=== PATIENT | female | born 1995 | race Caucasian/White ===

== ENCOUNTER 2017-03-08 01:25 | Emergency (ER) | payer OTHER ==
[2017-03-08 01:33] VITALS: TEMP 98.6
--- NOTE | 2017-03-08 01:37 | EDPHY ---
H & P Stated Complaint: calf pain/cramping since yesterday-knee sx x1week ago HPI/ROS: HPI CHIEF COMPLAINT: Calf pain HISTORY OF PRESENT ILLNESS: This patient very pleasant 21-year-old female, significant past medical history for anxiety and depression, she presents emergency room with left calf pain and muscle spasms over the past 12 hours. She just recently drove from [place] to [place]. 7 days ago she had left knee surgery. She decided come the emergency room as she is having worsening calf pain and spasms concerning for DVT. She denies any chest pain or shortness of breath. Denies fever. Denies significant swelling. She does state that she was in 2 days of a 10 hour car ride both days she did try to ambulate as much as possible. Past Medical History: No significant medical history except for anxiety and depression Past Surgical History: Left knee surgery. 7 days ago. Social History: Denies daily use drugs alcohol tobacco products. Family History: Noncontributory ROS REVIEW OF SYSTEMS: A comprehensive 10 point review of systems is otherwise negative aside from elements mentioned in the history of present illness. Exam Constitutional appears well nontoxic, slightly anxious, tearful, triage nursing summary reviewed, vital signs reviewed, awake/alert. Eyes normal conjunctivae and sclera, EOMI, PERRLA. HENT normal inspection, atraumatic, moist mucus membranes, no epistaxis, neck supple/ no meningismus, no raccoon eyes. Respiratory clear to auscultation bilaterally, normal breath sounds, no respiratory distress, no wheezing. Cardiovascular rate normal, regular rhythm, no murmur, no edema, distal pulses normal. Gastrointestinal soft, non-tender, no rebound, no guarding, normal bowel sounds, no distension, no pulsatile mass. Genitourinary no CVA tenderness. Musculoskeletal left lower extremity: Good cap refill, warm extremity, good distal pulse, no significant leg swelling on exam, no rash, no erythema, no warmth, mild tenderness palpation over the posterior calf and popliteal space but no fullness or significant swelling, no midline vertebral tenderness, full range of motion, no calf swelling, no tenderness of extremities, no meningismus , good pulses, neurovascularly intact. Skin pink, warm, & dry, no rash, skin atraumatic. Neurologic awake, alert and oriented x 3, AAOx3, moves all 4 extremities equally, motor intact, sensory intact, CN II-XII intact, normal cerebellar, normal vision, normal speech. Psychiatric normal mood/affect. Heme/Lymph/Immune no lymphadenopathy. Differential Diagnosis: Includes but is not limited to in a particular order muscle spasm, leg cramps, DVT Medical Decision Making:Plan for this patient ultrasound left lower extremity rule out DVT. Re-evaluation: Ultrasound of the left lower extremity The results of the study are negative for DVT. I discussed the results of this study with the radiologist Dr. Romeo [id number]: Updated patient about ultrasound findings. No DVT. Recommend ice pack to her knee stretching her legs. Return emergency room if there is worsening pain, swelling or any questions or concerns she understands.. Source: Patient - Personal History LMP (Females 10-55): 22-28 Days Ago Current Tetanus/Diphtheria Vaccine: Yes Current Tetanus Diphtheria and Acellular Pertussis (TDAP): Yes Tetanus Vaccine Date: 2011 - Medical/Surgical History Hx Asthma: Yes Hx Chronic Respiratory Disease: No Hx Diabetes: No Hx Cardiac Disease: No Hx Renal Disease: No Hx Cirrhosis: No Hx Alcoholism: No Hx HIV/AIDS: No Hx Splenectomy or Spleen Trauma: No Other PMH: ANOREXIA, ANXIETY, ADD, REACTIVE AIRWAY DX, DEPRESSION, KNEE SX - Social History Smoking Status: Never smoked Constitutional: Initial Vital Signs Temperature (C) 37.0 C 03/08/17 01:27 Heart Rate 114 H 03/08/17 01:27 Respiratory Rate 18 03/08/17 01:27 Blood Pressure 126/85 H 03/08/17 01:27 O2 Sat (%) 98 03/08/17 01:27 O2 Delivery Mode Room Air Allergies/Adverse Reactions: No Known Allergies Allergy (Verified 05/26/16 17:09) Home Medications: Medication Instructions Recorded Albuterol [Proventil] 17 gm IH 03/26/16 Levomefolate/Algal Oil 03/26/16 [Deplin-Algal Oil 7.5 mg Cap] Methylphenidate HCl [Concerta] 03/26/16 Zaleplon [ZALEPLON] 03/26/16 buPROPion [Wellbutrin 75mg (*)] 03/26/16 ASPIRIN 03/08/17 Oxycodone HCl 03/08/17 Departure - Departure Disposition: Home, Routine, Self-Care Clinical Impression: Calf pain Qualifiers: Laterality: left Qualified Code(s): M79.662 - Pain in left lower leg Condition: Good Instructions: Leg Cramps (ED) Referrals: OUT OF,STATE [Other] - As per Instructions
[2017-03-08 03:12] VITALS: BP 112/64; PULSE 64; RESP 16; O2SAT 97
== END 2017-03-08 03:10 | disposition home or self-care (01) ==
DX: M79.662 Pain in left lower leg (principal); J45.909 Unspecified asthma, uncomplicated; Z79.82 Long term (current) use of aspirin

== ENCOUNTER 2017-03-29 14:56 | Emergency (ER) | payer OTHER ==
[2017-03-29 15:04] VITALS: RESP 16; TEMP 97.7
--- NOTE | 2017-03-29 16:19 | EDPHY ---
H & P Stated Complaint: vomit x 1 mo, weight loss, sent from ?[facility] Time Seen by Provider: 03/29/17 16:04 HPI/ROS: CHIEF COMPLAINT: "I am here to have my blood recheck" HISTORY OF PRESENT ILLNESS: 21-year-old female arrives via private vehicle. She has been experiencing nausea, vomiting, esophageal reflux for the past 1 month after knee surgery. She has been seen by GI of the the [facility] , was started on proton pump inhibitor, was told that this may be related to somatization and in addition to further GI workup was recommended she follow up with a therapist in the [facility] which she has upcoming appointments for. She wanted to insure that she was not dehydrated, went to [facility] and was referred to the ER for blood work as they are unable to do that there today, Friday. She has no complaints of pain or discomfort. She is concerned she is dehydrated would like IV fluids. She denies: Abdominal pain, back pain, fever, chills, urinary abnormality, myalgias , syncope, near syncope. REVIEW OF SYSTEMS: A ten point review of systems was performed and is negative with the exception of the items mentioned in the HPI PAST MEDICAL & SURGICAL HISTORY: 1 month of esophageal reflux SOCIAL HISTORY:nonsmoker student PHYSICAL EXAM (Prior to examination, patient consented to physical exam, hands were washed and my usual and customary physical exam procedures followed) 1) GENERAL: Well-developed, well-nourished, alert and oriented. Appears to be in no acute distress. 2) HEAD: Normocephalic, atraumatic 3) HEENT: Pupils equal, round, reactive to light bilaterally. Sclera anicteric. Nasopharynx, oropharynx, clear, no lesions. dry mucous membranes Ears bilaterally with normal tympanic membranes. 4) NECK: Full range of motion, no meningeal signs. 5) LUNGS: Clear auscultation bilaterally, no wheezes, no rhonchi, no retractions. 6) HEART: Regular rate and rhythm, no murmur, no heave, no gallop. 7) ABDOMEN: No guarding, no rebound, no focal tenderness, negative McBurney's, negative Espinosa's, negative Rovsing's, negative peritoneal sign, I am unable to elicit any abdominal pain on exam 8) MUSCULOSKELETAL: Moving all extremities, no focal areas of tenderness, no obvious trauma. No peripheral edema or discoloration. 9) BACK: No CVA tenderness, no midline vertebral tenderness, no fluctuance, no step-off, no obvious trauma, no visual or palpable abnormality. 10) SKIN: No rash, no petechiae. 11) Psychiatric: Patient is oriented X 3, there is no agitation. DIFFERENTIAL DIAGNOSIS: My differential diagnosis includes, but is not limited to, acute appendicitis, acute cholecystitis, bowel obstruction, acute pancreatitis, ovarian torsion, ectopic , gastritis . The patient understands that this diagnosis is provisional and can never be 100% accurate. This is a partial list of diagnoses considered. These considerations are based on history, physical exam, past history and reassessment. - Personal History LMP (Females 10-55): 8-14 Days Ago Current Tetanus/Diphtheria Vaccine: Unsure Current Tetanus Diphtheria and Acellular Pertussis (TDAP): Unsure Tetanus Vaccine Date: 2011 - Medical/Surgical History Hx Asthma: Yes Hx Chronic Respiratory Disease: No Hx Diabetes: No Hx Cardiac Disease: No Hx Renal Disease: No Hx Cirrhosis: No Hx Alcoholism: No Hx HIV/AIDS: No Hx Splenectomy or Spleen Trauma: No Other PMH: ANOREXIA, ANXIETY, ADD, REACTIVE AIRWAY DX, DEPRESSION, KNEE SX - Social History Smoking Status: Never smoked Constitutional: Initial Vital Signs Temperature (C) 36.5 C 03/29/17 15:02 Heart Rate 95 03/29/17 15:02 Respiratory Rate 16 03/29/17 15:02 Blood Pressure 121/79 H 03/29/17 15:02 O2 Sat (%) 98 03/29/17 15:02 O2 Delivery Mode Room Air Allergies/Adverse Reactions: No Known Allergies Allergy (Verified 05/26/16 17:09) Home Medications: Medication Instructions Recorded Concerta 03/29/17 Deplin-Algal Oil 7.5 mg Cap 03/29/17 Hyoscyamine Sulfate 03/29/17 Zofran 03/29/17 Medical Decision Making ED Course/Re-evaluation: 4:19 p.m.: Will obtain laboratory studies. Will hold on IV fluids until chemistry results 5:06 p.m.: This patient continues to appear well, I reviewed her laboratory studies. There is no indication for further diagnostic studies or hospital admission. She has been given IV hydration. She has been given copies labs. She is planning on following up with of the [facility] this week (today is Friday). No complaints of abdominal pain. Abdomen remains soft on reexamination. Doubt acute surgical abdominal pathology - Data Points Laboratory Results: Laboratory Results 03/29/17 16:26 03/29/17 16:26 03/29/17 03/29/17 03/29/17 16:26 16:26 16:26 WBC 4.51 10^3/uL 10^3/uL (3.80-9.50) RBC 4.80 10^6/uL 10^6/uL (4.18-5.33) Hgb 13.5 g/dL g/dL (12.6-16.3) POC Hgb Hct 41.6 % % (38.0-47.0) POC Hct MCV 86.7 fL fL (81.5-99.8) MCH 28.1 pg pg (27.9-34.1) MCHC 32.5 g/dL g/dL (32.4-36.7) RDW 14.2 % % (11.5-15.2) Plt Count 190 10^3/uL 10^3/uL (150-400) MPV 11.3 fL fL (8.7-11.7) Neut % (Auto) 56.3 % % (39.3-74.2) Lymph % (Auto) 35.7 % % (15.0-45.0) [place] % (Auto) 6.7 % % (4.5-13.0) Eos % (Auto) 0.9 % % (0.6-7.6) Baso % (Auto) 0.2 % L % (0.3-1.7) Nucleat RBC Rel Count 0.0 % % (0.0-0.2) Absolute Neuts (auto) 2.54 10^3/uL 10^3/uL (1.70-6.50) Absolute Lymphs (auto) 1.61 10^3/uL 10^3/uL (1.00-3.00) Absolute Monos (auto) 0.30 10^3/uL 10^3/uL (0.30-0.80) Absolute Eos (auto) 0.04 10^3/uL 10^3/uL (0.03-0.40) Absolute Basos (auto) 0.01 10^3/uL L 10^3/uL (0.02-0.10) Absolute Nucleated RBC 0.00 10^3/uL 10^3/uL (0-0.01) Immature Gran % 0.2 % % (0.0-1.1) Immature Gran # 0.01 10^3/uL 10^3/uL (0.00-0.10) POC Sodium Sodium 138 mEq/L mEq/L (134-144) POC Potassium Potassium 3.9 mEq/L mEq/L (3.5-5.2) POC Chloride Chloride 105 mEq/L mEq/L (97-110) Carbon Dioxide 22 mEq/l mEq/l (22-31) Anion Gap 11 mEq/L mEq/L (8-16) POC BUN BUN 5 mg/dL L mg/dL (7-23) Creatinine 0.7 mg/dL mg/dL (0.6-1.0) POC Creatinine Estimated GFR > 60 Glucose 87 mg/dL mg/dL (70-100) POC Glucose Calcium 9.5 mg/dL mg/dL (8.5-10.4) Total Bilirubin 0.4 mg/dL mg/dL (0.1-1.4) Conjugated Bilirubin 0.2 mg/dL mg/dL (0.0-0.5) Unconjugated Bilirubin 0.2 mg/dL mg/dL (0.0-1.1) AST 19 IU/L IU/L (14-46) ALT 36 IU/L IU/L (9-52) Alkaline Phosphatase 46 IU/L IU/L (38-126) Total Protein 7.2 g/dL g/dL (6.3-8.2) Albumin 4.1 g/dL g/dL (3.5-5.0) Lipase 93 IU/L IU/L (23-300) Beta HCG, Qual NEGATIVE 03/29/17 16:25 WBC RBC Hgb POC Hgb 15.3 gm/dL gm/dL (12.6-16.3) Hct POC Hct 45 % % (38-47) MCV MCH MCHC RDW Plt Count MPV Neut % (Auto) Lymph % (Auto) [place] % (Auto) Eos % (Auto) Baso % (Auto) Nucleat RBC Rel Count Absolute Neuts (auto) Absolute Lymphs (auto) Absolute Monos (auto) Absolute Eos (auto) Absolute Basos (auto) Absolute Nucleated RBC Immature Gran % Immature Gran # POC Sodium 142 mEq/L mEq/L (134-144) Sodium POC Potassium 3.5 mEq/L mEq/L (3.3-5.0) Potassium POC Chloride 106 mEq/L mEq/L (97-110) Chloride Carbon Dioxide Anion Gap POC BUN 4 mg/dL L mg/dL (7-23) BUN Creatinine POC Creatinine 0.7 mg/dL mg/dL (0.6-1.0) Estimated GFR Glucose POC Glucose 91 mg/dL mg/dL (70-100) Calcium Total Bilirubin Conjugated Bilirubin Unconjugated Bilirubin AST ALT Alkaline Phosphatase Total Protein Albumin Lipase Beta HCG, Qual Medications Given: Discontinued Medications Sodium Chloride (Ns) 1,000 mls @ 0 mls/hr IV ONCE ONE PRN Reason: Wide Open Stop: 03/29/17 16:36 Last Admin: 03/29/17 16:47 Dose: 1,000 mls Point of Care Test Results: 03/29/17 16:25 POC Sodium 142 POC Potassium 3.5 POC Chloride 106 POC BUN 4 L POC Creatinine 0.7 POC Glucose 91 Departure - Departure Disposition: Home, Routine, Self-Care Clinical Impression: Volume depletion Condition: Good Instructions: Acute Nausea and Vomiting (ED) Additional Instructions: Seek immediate medical attention if you develop new or worsening symptoms, if you are unable to keep food or fluid down, if you develop fevers, chills, inability to tolerate oral intake or any other symptoms that concerns you. Keep taking a proton pump inhibitor and ondansetron as described by GI of the [facility] as needed. Referrals: Sigrid Cabral MD [Primary Care Provider] - 03/31/17
[2017-03-29] MEDS ORDERED: NS 1,000 ML IV ONE (16:35)
[2017-03-29 16:41] LABS: % IMMATURE GRANULYOCYTES 0.2 % (0.0-1.1); ABSOLUTE IMMATURE GRANULOCYTES 0.01 10^3/uL (0.00-0.10); ADD DIFF? NO; ADD MORPH? NO; ADD SCAN? NO; ATYPICAL LYMPHOCYTE FLAG 20 (0-99); FRAGMENT RBC FLAG 0 (0-99); HEMATOCRIT 41.6 % (38.0-47.0); HEMOGLOBIN 13.5 g/dL (12.6-16.3); LEFT SHIFT FLG 0 (0-99); LIPEMIA HEMOLYSIS FLAG 80 (0-99); MEAN CELL HEMOGLOBIN 28.1 pg (27.9-34.1); MEAN CELL HEMOGLOBIN CONCENTR. 32.5 g/dL (32.4-36.7); MEAN CELL VOLUME 86.7 fL (81.5-99.8); MEAN PLATELET VOLUME 11.3 fL (8.7-11.7); PLATELET CLUMPS FLAG 0 (0-99); PLATELET COUNT 190 10^3/uL (150-400); RED CELL DISTRIBUTION WIDTH 14.2 % (11.5-15.2)
[2017-03-29 16:53] LABS: ALANINE AMINOTRANSFERASE 36 IU/L (9-52); ALBUMIN 4.1 g/dL (3.5-5.0); ALKALINE PHOSPHATASE 46 IU/L (38-126); ANION GAP 11 mEq/L (8-16); ASPARTATE AMINOTRANSFERASE 19 IU/L (14-46); BILIRUBIN,TOTAL 0.4 mg/dL (0.1-1.4); BILIRUBIN-CONJUGATED 0.2 mg/dL (0.0-0.5); BILIRUBIN-UNCONJUGATED 0.2 mg/dL (0.0-1.1); CALCIUM 9.5 mg/dL (8.5-10.4); CARBON DIOXIDE 22 mEq/l (22-31); CHLORIDE 105 mEq/L (97-110); CREATININE 0.7 mg/dL (0.6-1.0); GLOMERULAR FILTRATION RATE > 60; GLUCOSE 87 mg/dL (70-100); POTASSIUM 3.9 mEq/L (3.5-5.2); SODIUM 138 mEq/L (134-144); TOTAL PROTEIN 7.2 g/dL (6.3-8.2)
[2017-03-29 17:36] VITALS: BP 123/88; PULSE 91; O2SAT 99
== END 2017-03-29 17:35 | disposition home or self-care (01) ==
DX: E86.9 Volume depletion, unspecified (principal); J45.909 Unspecified asthma, uncomplicated
CPT/HCPCS: 82947-QW

== ENCOUNTER 2017-05-21 16:56 | Emergency (ER) | payer OTHER ==
[2017-05-21 17:01] VITALS: TEMP 98.1
--- NOTE | 2017-05-21 17:20 | EDPHY ---
H & P Stated Complaint: Chest Pain, Vomiting, near syncope Time Seen by Provider: 05/21/17 17:02 - Personal History Current Tetanus/Diphtheria Vaccine: Yes Current Tetanus Diphtheria and Acellular Pertussis (TDAP): Yes Tetanus Vaccine Date: 2011 - Medical/Surgical History Hx Asthma: Yes Hx Chronic Respiratory Disease: No Hx Diabetes: No Hx Cardiac Disease: No Hx Renal Disease: No Hx Cirrhosis: No Hx Alcoholism: No Hx HIV/AIDS: No Hx Splenectomy or Spleen Trauma: No Other PMH: ANOREXIA, ANXIETY, ADD, REACTIVE AIRWAY DX, DEPRESSION, KNEE SX - Social History Smoking Status: Never smoked Constitutional: Initial Vital Signs Temperature (C) 36.7 C 05/21/17 16:58 Heart Rate 120 H 05/21/17 16:58 Respiratory Rate 18 05/21/17 16:58 Blood Pressure 140/77 H 05/21/17 16:58 O2 Sat (%) 98 05/21/17 16:58 O2 Delivery Mode Room Air Allergies/Adverse Reactions: No Known Allergies Allergy (Verified 05/26/16 17:09) Home Medications: Medication Instructions Recorded Concerta 03/29/17 Zofran 03/29/17 Dicyclomine 05/21/17 Dyclonine HCl 05/21/17 Pantoprazole Sodium 05/21/17 busPIRone 05/21/17 Departure - Departure Referrals: Sigrid Cabral MD [Primary Care Provider] - As per Instructions Report Scribed for: Pardeep Patterson Report Scribed by: Lola Pimentel Date of Report: 05/21/17 Time of Report: 17:20
[2017-05-21] MEDS ORDERED: PROMETHAZINE HCL 25 MG/ML INJ IVP ONE (17:48)
--- NOTE | 2017-05-21 17:52 | CPEKG ---
Heart Rate: 93 RR Interval: 645 P-R Interval: 128 QRSD Interval: 98 QT Interval: 364 QTC Interval: 453 P Farrar: 86 QRS Farrar: 89 T Wave Farrar: 48 EKG Severity - NORMAL ECG - EKG Impression: SINUS RHYTHM Electronically Signed By: Pardeep Patterson 21-May-2017 22:16:03
--- NOTE | 2017-05-21 17:54 | EDPHY ---
H & P Time Seen by Provider: 05/21/17 17:02 HPI/ROS: CHIEF COMPLAINT: Chest pain HISTORY OF PRESENT ILLNESS: 21-year-old female presents to the emergency department by private vehicle complaining of chest pain that began approximately 3 hours prior to arrival. The patient describes it as sharp pain. She also has pleuritic component. She feels mildly short of breath. Pain does not radiate anywhere. She has felt nauseous and has been vomiting all day long. Patient has a history of vomiting and has been steadily losing weight over last 3 months. She is scheduled to have an EGD with [facility] tomorrow morning. She takes Zofran 8 mg twice daily and was unable to keep her Zofran down today. She has been urinating however. Her last menstrual period was over 1 month ago and she does not think that she is . She does take oral contraceptive pills. She denies pain. REVIEW OF SYSTEMS: Constitutional: No fever, no chills. Eyes: No double or blurry vision. ENT: No sore throat. Respiratory: No cough, no shortness of breath. Cardiac: No chest pain. Gastrointestinal: No abdominal pain, vomiting or diarrhea. Genitourinary: No dysuria. Musculoskeletal: No neck or back pain. Skin: No rashes. Neurological: No headache. Past Medical/Surgical History: Anorexia, anxiety Social History: Single Smoking Status: Never smoked Physical Exam: General Appearance: Alert, no distress. Anxious. Eyes: Pupils equal and round. Extraocular motions are all intact. ENT: Mouth: Mucous membranes moist. Respiratory: No wheezing, rhonchi, or rales, lungs are clear to auscultation.Unable to recreate pain with palpation to the anterior aspect of the chest. No palpable crepitus. Cardiovascular: Regular rate and rhythm. Gastrointestinal: Abdomen is soft and nontender, no masses, no rebound or guarding, bowel sounds normal. Neurological: Alert and oriented x 3, cranial nerves II through XII grossly intact Skin: Warm and dry, no rashes. Musculoskeletal: Nontender to palpate along the cervical, thoracic or lumbar spine. Neck is supple. Extremities: Full range of motion and no peripheral edema. Psychiatric: Patient is oriented X 3, there is no agitation. Constitutional: Initial Vital Signs Temperature (C) 36.7 C 05/21/17 16:58 Heart Rate 120 H 05/21/17 16:58 Respiratory Rate 18 05/21/17 16:58 Blood Pressure 140/77 H 05/21/17 16:58 O2 Sat (%) 98 05/21/17 16:58 O2 Delivery Mode Room Air Allergies/Adverse Reactions: No Known Allergies Allergy (Verified 05/26/16 17:09) Home Medications: Medication Instructions Recorded Concerta 03/29/17 Zofran 03/29/17 Dicyclomine 05/21/17 Dyclonine HCl 05/21/17 Pantoprazole Sodium 05/21/17 busPIRone 05/21/17 Medical Decision Making - Diagnostics EKG Interpretation: EKG was reviewed by Dr. Pardeep Patterson revealing normal sinus rhythm. See interpretation in trace master. Imaging Results: Imaging Impressions Chest X-Ray 05/21/17 18:49 Impression: No acute thoracic abnormality. Imaging: I viewed and interpreted images myself ED Course/Re-evaluation: 21-year-old female presents to the emergency department with chest pain and shortness of breath. The patient describes as pleuritic. She is not hypoxic. She is not tachycardic. No recent travel. No calf pain or swelling. No recent surgery. I doubt this patient has a pulmonary embolism. Her D-dimer was normal. Troponin normal. All of her laboratory studies were unremarkable. Her chest x-rays unremarkable. EKG revealed normal sinus rhythm. The patient has had ongoing vomiting for last 3 months. She has a history of anorexia and has been through treatment for this. She has a scheduled EGD tomorrow. Patient was given Zofran and then ultimately was given promethazine 12.5 mg IV. Patient was tolerating p.o. fluids and will be discharged home. Differential Diagnosis: Chest pain including but not limited to myocardial ischemia, pulmonary embolus, chest wall pain, pleural inflammation and pulmonary infectious causes. Shortness of breath including but not limited to pulmonary infectious process, COPD, asthma, pulmonary embolus and congestive heart failure. - Data Points Laboratory Results: Laboratory Results 05/21/17 17:15 05/21/17 17:15 05/21/17 05/21/17 05/21/17 17:15 17:15 17:15 WBC RBC Hgb Hct MCV MCH MCHC RDW Plt Count MPV Neut % (Auto) Lymph % (Auto) [place] % (Auto) Eos % (Auto) Baso % (Auto) Nucleat RBC Rel Count Absolute Neuts (auto) Absolute Lymphs (auto) Absolute Monos (auto) Absolute Eos (auto) Absolute Basos (auto) Absolute Nucleated RBC Immature Gran % Immature Gran # D-Dimer 0.28 ug/mLFEU ug/mLFEU (0.00-0.50) Sodium 140 mEq/L mEq/L (134-144) Potassium 3.7 mEq/L mEq/L (3.5-5.2) Chloride 106 mEq/L mEq/L (97-110) Carbon Dioxide 21 mEq/l L mEq/l (22-31) Anion Gap 13 mEq/L mEq/L (8-16) BUN 11 mg/dL mg/dL (7-23) Creatinine 0.8 mg/dL mg/dL (0.6-1.0) Estimated GFR > 60 Glucose 85 mg/dL mg/dL (70-100) Calcium 9.3 mg/dL mg/dL (8.5-10.4) Troponin I < 0.012 ng/mL ng/mL (0.000-0.034) Beta HCG, Qual NEGATIVE 05/21/17 17:15 WBC 6.31 10^3/uL 10^3/uL (3.80-9.50) RBC 5.07 10^6/uL 10^6/uL (4.18-5.33) Hgb 14.3 g/dL g/dL (12.6-16.3) Hct 43.7 % % (38.0-47.0) MCV 86.2 fL fL (81.5-99.8) MCH 28.2 pg pg (27.9-34.1) MCHC 32.7 g/dL g/dL (32.4-36.7) RDW 13.4 % % (11.5-15.2) Plt Count 249 10^3/uL 10^3/uL (150-400) MPV 11.2 fL fL (8.7-11.7) Neut % (Auto) 62.3 % % (39.3-74.2) Lymph % (Auto) 30.7 % % (15.0-45.0) [place] % (Auto) 6.2 % % (4.5-13.0) Eos % (Auto) 0.2 % L % (0.6-7.6) Baso % (Auto) 0.3 % % (0.3-1.7) Nucleat RBC Rel Count 0.0 % % (0.0-0.2) Absolute Neuts (auto) 3.93 10^3/uL 10^3/uL (1.70-6.50) Absolute Lymphs (auto) 1.94 10^3/uL 10^3/uL (1.00-3.00) Absolute Monos (auto) 0.39 10^3/uL 10^3/uL (0.30-0.80) Absolute Eos (auto) 0.01 10^3/uL L 10^3/uL (0.03-0.40) Absolute Basos (auto) 0.02 10^3/uL 10^3/uL (0.02-0.10) Absolute Nucleated RBC 0.00 10^3/uL 10^3/uL (0-0.01) Immature Gran % 0.3 % % (0.0-1.1) Immature Gran # 0.02 10^3/uL 10^3/uL (0.00-0.10) D-Dimer Sodium Potassium Chloride Carbon Dioxide Anion Gap BUN Creatinine Estimated GFR Glucose Calcium Troponin I Beta HCG, Qual Medications Given: Discontinued Medications Lorazepam (Ativan Injection) 1 mg IVP EDNOW ONE Stop: 05/21/17 19:50 Last Admin: 05/21/17 19:54 Dose: 1 mg Promethazine HCl (Phenergan) 12.5 mg IVP EDNOW ONE Stop: 05/21/17 17:49 Last Admin: 05/21/17 17:55 Dose: 12.5 mg Departure - Departure Disposition: Home, Routine, Self-Care Clinical Impression: Chest pain Qualifiers: Chest pain type: unspecified Qualified Code(s): R07.9 - Chest pain, unspecified Condition: Good Instructions: Chest Pain (ED) Additional Instructions: Activity as tolerated. Continue medications as prescribed. Keep scheduled EGD appointment tomorrow. Return to the emergency department if you develop recurring chest pain, shortness of breath, recurring vomiting, or if you feel worse in any way. Referrals: Sigrid Cabral MD [Primary Care Provider] - 1-2 days without fail
[2017-05-21 18:12] LABS: PLATELET COUNT 249 10^3/uL (150-400)
[2017-05-21] MEDS ORDERED: LORazepam 2 MG/ML INJ IVP ONE (19:49)
[2017-05-21 21:11] VITALS: BP 117/78; PULSE 85; RESP 19; O2SAT 97
== END 2017-05-21 21:16 | disposition home or self-care (01) ==
DX: R07.9 Chest pain, unspecified (principal)
CPT/HCPCS: 96374; J2060; J2550

== ENCOUNTER → 2017-07-03 | Outpatient (CLI) | payer OTHER | LOC: CIMAGING 14:44 | PROVIDERS: ATTEND Obstetrics & Gynecology Gynecology | DX: R19.03 Right lower quadrant abdominal swelling, mass and lump (principal) | CPT/HCPCS: 76856-PO ==

== ENCOUNTER 2017-08-18 16:44 | Emergency (ER) | payer OTHER ==
[2017-08-18 16:56] VITALS: O2SAT 97
--- NOTE | 2017-08-18 17:14 | EDPHY ---
H & P Stated Complaint: Hematuria,dysuria - Personal History LMP (Females 10-55): Over 28 Days Ago Current Tetanus Diphtheria and Acellular Pertussis (TDAP): Yes Tetanus Vaccine Date: 2011 - Medical/Surgical History Hx Asthma: Yes Hx Chronic Respiratory Disease: No Hx Diabetes: No Hx Cardiac Disease: No Hx Renal Disease: No Hx Cirrhosis: No Hx Alcoholism: No Hx HIV/AIDS: No Hx Splenectomy or Spleen Trauma: No Other PMH: ANOREXIA, ANXIETY, ADD, REACTIVE AIRWAY DX, DEPRESSION, KNEE SX, "immune system issues" - Social History Smoking Status: Never smoked Time Seen by Provider: 08/18/17 16:58 HPI/ROS: CHIEF COMPLAINT: Hematuria, dysuria, tachycardia HISTORY OF PRESENT ILLNESS: 21-year-old female history of fibromyalgia, POTS, arrives via private vehicle complaining of dysuria, hematuria since this morning patient Urgent Care was told to go to the ER because she was tachycardic in the 110s. No fever or chills. No nausea or vomiting. No back or flank pain. No chest pain. No headache. REVIEW OF SYSTEMS: A ten point review of systems was performed and is negative with the exception of the items mentioned in the HPI PAST MEDICAL & SURGICAL HISTORY: Fibromyalgia. Possible postural orthostatic tachycardia syndrome SOCIAL HISTORY: nonsmoker PHYSICAL EXAM (Prior to examination, patient consented to physical exam, hands were washed and my usual and customary physical exam procedures followed) 1) GENERAL: Well-developed, well-nourished, alert and oriented. Appears nontoxic. 2) HEAD: Normocephalic, atraumatic 3) HEENT: Pupils equal, round, reactive to light bilaterally. Sclera anicteric. Nasopharynx, oropharynx, clear, no lesions. dry mucous membranes. 4) NECK: Full range of motion, no meningeal signs. 5) LUNGS: Clear auscultation bilaterally, no wheezes, no rhonchi, no retractions. 6) HEART: Regular rate and rhythm, no murmur, no heave, no gallop. 7) ABDOMEN: No guarding, no rebound, no focal tenderness, negative McBurney's, negative Espinosa's, negative Rovsing's, negative peritoneal sign, unable to elicit any pain on exam. 8) MUSCULOSKELETAL: Moving all extremities, no focal areas of tenderness, no obvious trauma. No peripheral edema or discoloration. 9) BACK: No CVA tenderness. 10) SKIN: No rash, no petechiae. 11) Psychiatric: Patient is oriented X 3, there is no agitation. DIFFERENTIAL DIAGNOSIS: In no particular order including but not limited to cystitis, pyelonephritis, nephrolithiasis, urosepsis (Denisa Keane Juanis) Constitutional: Initial Vital Signs Temperature (C) 36.9 C 08/18/17 16:45 Heart Rate 118 H 08/18/17 16:45 Respiratory Rate 18 08/18/17 16:45 Blood Pressure 128/77 H 08/18/17 16:45 O2 Sat (%) 97 08/18/17 16:45 O2 Delivery Mode Room Air Allergies/Adverse Reactions: No Known Allergies Allergy (Verified 08/18/17 16:51) Home Medications: Medication Instructions Recorded Concerta 03/29/17 Zofran 03/29/17 Dicyclomine 05/21/17 Pantoprazole Sodium 05/21/17 busPIRone 05/21/17 Cephalexin [Keflex] 500 mg PO TID 7 Days cap 08/18/17 GABAPENTIN 400 mg PO 08/18/17 Levomefolate/Algal Oil 08/18/17 [Deplin-Algal Oil 15 mg Capsule] MIRTAZAPINE [Remeron 7.5 mg] 7.5 mg PO HS 08/18/17 Phenazopyridine HCl [Pyridium] 200 mg PO PC #10 tab 08/18/17 Medical Decision Making ED Course/Re-evaluation: 6:15 p.m.: Patient re-evaluated, heart rate in the 90s, feeling improvement, afebrile. She has been given IV hydration, dose of IV ceftriaxone, plan will be discharged with Keflex. At this time I do not think that hospitalization is indicated. Doubt urosepsis. She is tolerating oral intake. She feels comfortable with this plan. Usual and customary discharge precautions and instructions provided. Care of patient under supervision of primary supervising physician Dr Garcia . (Denisa Keane Juanis) Other Provider: PHYSICIAN DOCUMENTATION: The patient was evaluated and managed by the Physician Environmental Compliance Engineer. My co- signature indicates that I have reviewed this chart and I agree with the findings and plan of care as documented. I am the secondary supervising physician. (Armen Garcia) - Data Points Laboratory Results: Laboratory Results 08/18/17 17:13 08/18/17 17:13 08/18/17 08/18/17 08/18/17 17:13 17:13 17:00 WBC 8.48 10^3/uL 10^3/uL (3.80-9.50) RBC 4.58 10^6/uL 10^6/uL (4.18-5.33) Hgb 13.0 g/dL g/dL (12.6-16.3) Hct 39.3 % % (38.0-47.0) MCV 85.8 fL fL (81.5-99.8) MCH 28.4 pg pg (27.9-34.1) MCHC 33.1 g/dL g/dL (32.4-36.7) RDW 13.7 % % (11.5-15.2) Plt Count 234 10^3/uL 10^3/uL (150-400) MPV 10.5 fL fL (8.7-11.7) Neut % (Auto) 72.1 % % (39.3-74.2) Lymph % (Auto) 21.0 % % (15.0-45.0) [place] % (Auto) 6.4 % % (4.5-13.0) Eos % (Auto) 0.2 % L % (0.6-7.6) Baso % (Auto) 0.1 % L % (0.3-1.7) Nucleat RBC Rel Count 0.0 % % (0.0-0.2) Absolute Neuts (auto) 6.11 10^3/uL 10^3/uL (1.70-6.50) Absolute Lymphs (auto) 1.78 10^3/uL 10^3/uL (1.00-3.00) Absolute Monos (auto) 0.54 10^3/uL 10^3/uL (0.30-0.80) Absolute Eos (auto) 0.02 10^3/uL L 10^3/uL (0.03-0.40) Absolute Basos (auto) 0.01 10^3/uL L 10^3/uL (0.02-0.10) Absolute Nucleated RBC 0.00 10^3/uL 10^3/uL (0-0.01) Immature Gran % 0.2 % % (0.0-1.1) Immature Gran # 0.02 10^3/uL 10^3/uL (0.00-0.10) Sodium 139 mEq/L mEq/L (135-145) Potassium 3.7 mEq/L mEq/L (3.5-5.2) Chloride 104 mEq/L mEq/L (97-110) Carbon Dioxide 22 mEq/l mEq/l (22-31) Anion Gap 13 mEq/L mEq/L (8-16) BUN 12 mg/dL mg/dL (7-23) Creatinine 0.8 mg/dL mg/dL (0.6-1.0) Estimated GFR > 60 Glucose 88 mg/dL mg/dL (70-100) Calcium 9.5 mg/dL mg/dL (8.5-10.4) Urine Color YELLOW Urine Appearance HAZY Urine pH 7.0 (5.0-7.5) Ur Specific [place] 1.004 (1.002-1.030) Urine Protein NEGATIVE (NEGATIVE) Urine Ketones NEGATIVE (NEGATIVE) Urine Blood 3+ H (NEGATIVE) Urine Nitrate NEGATIVE (NEGATIVE) Urine Bilirubin NEGATIVE (NEGATIVE) Urine Urobilinogen NEGATIVE EU EU (0.2-1.0) Ur Leukocyte Esterase 3+ H (NEGATIVE) Urine RBC 15-25 /hpf H /hpf (0-3) Urine WBC 50-182 /hpf H /hpf (0-3) Ur Epithelial Cells TRACE /lpf /lpf (NONE-1+) Urine Bacteria 1+ /hpf H /hpf (NONE SEEN) Urine Mucus TRACE /lpf /lpf (NONE-1+) Urine Glucose NEGATIVE (NEGATIVE) Urine Test 08/18/17 17:00 WBC RBC Hgb Hct MCV MCH MCHC RDW Plt Count MPV Neut % (Auto) Lymph % (Auto) [place] % (Auto) Eos % (Auto) Baso % (Auto) Nucleat RBC Rel Count Absolute Neuts (auto) Absolute Lymphs (auto) Absolute Monos (auto) Absolute Eos (auto) Absolute Basos (auto) Absolute Nucleated RBC Immature Gran % Immature Gran # Sodium Potassium Chloride Carbon Dioxide Anion Gap BUN Creatinine Estimated GFR Glucose Calcium Urine Color Urine Appearance Urine pH Ur Specific Creede Urine Protein Urine Ketones Urine Blood Urine Nitrate Urine Bilirubin Urine Urobilinogen Ur Leukocyte Esterase Urine RBC Urine WBC Ur Epithelial Cells Urine Bacteria Urine Mucus Urine Glucose Urine Test NEGATIVE Medications Given: Discontinued Medications Sodium Chloride (Ns) 2,000 mls @ 0 mls/hr IV ONCE ONE PRN Reason: Wide Open Stop: 08/18/17 17:47 Last Admin: 08/18/17 17:59 Dose: 2,000 mls Ondansetron HCl (Zofran) 4 mg IVP EDNOW ONE Stop: 08/18/17 18:12 Last Admin: 08/18/17 18:15 Dose: 4 mg Departure - Departure Disposition: Home, Routine, Self-Care Clinical Impression: Cystitis Condition: Good Instructions: Urinary Tract Infection in Women (ED) Additional Instructions: Return to the ER immediately if you experience fevers/chills, flu like symptoms , inability to tolerate oral intake, nausea or vomiting, or any other symptoms that concern you. Referrals: Sigrid Cabral MD [Primary Care Provider] - 1-2 days without fail Prescriptions: Cephalexin [Keflex] 500 mg PO TID 7 Days cap Phenazopyridine HCl [Pyridium] 200 mg PO PC #10 tab
[2017-08-18 17:20] LABS: PLATELET COUNT 234 10^3/uL (150-400)
[2017-08-18] MEDS ORDERED: NS 2,000 ML IV ONE (17:46)
[2017-08-18 18:04] VITALS: TEMP 98.2
[2017-08-18] MEDS ORDERED: ONDANSETRON 4 MG/2 ML VIAL IVP ONE (18:11)
[2017-08-18] MEDS ORDERED: cefTRIAXone 1 GM in STERILE WATER INJ 10 ML IV ONE (18:47)
[2017-08-18] MEDS ORDERED: KETOROLAC 30 MG/1 ML SDV IVP ONE (19:19)
[2017-08-18 20:40] VITALS: BP 127/79; PULSE 83; RESP 18
== END 2017-08-18 20:39 | disposition home or self-care (01) ==
DX: N30.90 Cystitis, unspecified without hematuria (principal); J45.909 Unspecified asthma, uncomplicated; B96.20 Unspecified Escherichia coli [E. coli] as the cause of diseases classified elsewhere
CPT/HCPCS: 96374; J0696; J1885; J2405

== ENCOUNTER → 2017-11-14 | Outpatient (CLI) | payer OTHER | LOC: FIMAGING 11:13 | PROVIDERS: ATTEND Physician Assistant | DX: R11.2 Nausea with vomiting, unspecified (principal) ==

== ENCOUNTER → 2017-12-03 | Outpatient (CLI) | payer OTHER | LOC: FIMAGING 08:37 | PROVIDERS: ATTEND Physician Assistant | DX: R93.3 Abnormal findings on diagnostic imaging of other parts of digestive tract (principal) | CPT/HCPCS: A9541 ==

== ENCOUNTER 2018-04-22 09:42 | Emergency (ER) | payer OTHER ==
[2018-04-22] MEDS ORDERED: NS 1,000 ML IV ONE (10:14)
--- NOTE | 2018-04-22 10:41 | EDPHY ---
H & P Time Seen by Provider: 04/22/18 09:58 HPI/ROS: HPI Dizzy, felt twice this morning, headache. 22-year-old female with a complicated past medical history. She presents to the emergency department by ambulance. This patient reports that she has had an ongoing headache for 6 weeks. She describes this as a left-sided headache. She reports this morning the headache was worse. She describes it as aching and pulsating. She reports having a sensation of vertigo and falling twice secondary to being dizzy, not lightheaded. She denies any associated palpitations. She does have a history of orthostatic hypotension but states that her blood pressures have been normal this morning. No associated chest pain. She denies any sudden onset thunderclap headache. No new loss of sensation or weakness in her extremities. She does state that she generally feels very shaky on her feet. No changes in vision. ROS: Constitutional: No fever, no chills. As above. Eyes: No discharge. No changes in vision. ENT: No sore throat. No nasal congestion or rhinorrhea. Respiratory: No cough. No shortness of breath. Cardiac: No chest pain, no palpitations. Gastrointestinal: No abdominal pain, no vomiting, no diarrhea. Genitourinary: No hematuria. No dysuria or increased frequency with urination. Musculoskeletal: As. No neck pain. No myalgias or arthralgias. Skin: No rashes. Neurological: No headache. No focal weakness or altered sensation. Past medical history: Anorexia, anxiety, ADD, reactive airway disease, depression, Macrina-Danlos syndrome, pots. She has a neurologist in [place] whom she has been working with. She is scheduled to have MRIs of her neck and brain tomorrow became to the emergency department because of these worsening symptoms this morning. She states she has not had imaging of her head and neck in the past. Social history: She is here by herself currently. Nonsmoker. No alcohol. Physical Exam: General Appearance: Alert, she is anxious but not in distress This patient is responding to questions appropriately and in full sentences. This patient appears well-hydrated and well-nourished. Eyes: Pupils equal and round and reactive to light at 3-2 mm bilaterally, no pallor or injection. No lid edema, erythema or injection. No nystagmus. No photophobia. ENT, Mouth: Mucous membranes are moist. The pharyngeal tissues are unremarkable. No edema or swelling. No asymmetry suggestive of abscess. No erythema or exudates. No tongue lacerations or abrasions. Respiratory: There are no retractions, lungs are clear to auscultation with good air movement bilaterally. Cardiovascular: Regular rate and rhythm. No murmur. Gastrointestinal: Abdomen is soft and nontender, no masses, bowel sounds normal. No focal tenderness at McBurney's point. No Espinosa sign. Neurological: Motor sensory function is grossly intact. Cranial nerves are normal. Deep tendon reflexes are normal. She has a shuffling unsteady gait. She does not list to 1 side or the other. Skin: Warm and dry, no rashes. Musculoskeletal: Neck is supple and nontender. No pain on flexion of her neck. Extremities are symmetrical. All joints range without pain or impingement. Psychiatric: No agitation. No depression. Database: EKG: EKG time is 10:24 a.m.; EKG shows a narrow complex normal sinus rhythm with a ventricular rate of 52. The NM, QRS, QT intervals are within normal limits. There are no ST-T wave changes indicative of ischemic or injury pattern. No evidence of right heart strain. No evidence of Brugada syndrome, WPW, hypertrophic cardiomyopathy. Interpreted by me. Imaging: MRI of brain with and without contrast: Negative, results were discussed with staff radiologist Dr. Bobo Cleaning. MRA of neck: Negative. Results were discussed with staff radiologist Dr. Bobo Cleaning. Procedures: Emergency department course: Triage vital signs reviewed and are normal. IV was placed. She was started on IV normal saline with 500 cc to 1 L to be given over the next hour. An EKG was obtained and reviewed by myself. Given her history. MRIs of the head and neck as above will be obtained. She consents. 1:00 p.m., the patient has returned from MRI. We are waiting on the results. She is complaining of a left-sided headache as above. She was given 10 mg of IV Decadron, 10 mg of IV Reglan and 25 mg of IV Benadryl. Her repeat neurologic Assessment at this time is nonfocal. 2:10 p.m., the patient was re-evaluated. She is feeling much better. She states that her headache is gone. Repeat neurologic Assessment is nonfocal. I discussed the results of her blood work as well as her MRIs. I feel she is safe for discharge and follow up with her neurologist at this time. She feels comfortable going home. Return to emergency department precautions were reviewed with her thoroughly. All of her questions were answered. She was discharged from the emergency department in good condition. Differential Diagnosis: The differential diagnosis on this patient includes but is not limited to central versus peripheral etiology of vertigo, anxiety reaction, psychosomatic condition. This represents a partial list of diagnoses considered. These considerations are based on history, physical exam, past history, reassessment and diagnostic testing. Smoking Status: Never smoked Constitutional: Initial Vital Signs Temperature (C) 37.2 C 04/22/18 09:48 Heart Rate 70 04/22/18 09:48 Respiratory Rate 18 04/22/18 09:48 Blood Pressure 117/70 04/22/18 09:48 O2 Sat (%) 97 04/22/18 09:48 O2 Delivery Mode Room Air Allergies/Adverse Reactions: No Known Allergies Allergy (Verified 04/22/18 09:47) Home Medications: Medication Instructions Recorded Concerta 03/29/17 Zofran 03/29/17 Dicyclomine 05/21/17 Pantoprazole Sodium 05/21/17 busPIRone 05/21/17 GABAPENTIN 400 mg PO 08/18/17 Levomefolate/Algal Oil 08/18/17 [Deplin-Algal Oil 15 mg Capsule] Phenergan 04/22/18 Propranolol HCl 04/22/18 traMADol 04/22/18 Medical Decision Making - Data Points Laboratory Results: Laboratory Results 04/22/18 10:36 04/22/18 10:36 Medications Given: Discontinued Medications Dexamethasone (Decadron Injection) 10 mg IVP EDNOW ONE Stop: 04/22/18 13:22 Last Admin: 04/22/18 13:26 Dose: 10 mg Diazepam (Valium) 5 mg IVP EDNOW ONE Stop: 04/22/18 11:02 Last Admin: 04/22/18 11:50 Dose: 5 mg Diphenhydramine HCl (Benadryl Injection) 25 mg IVP EDNOW ONE Stop: 04/22/18 13:22 Last Admin: 04/22/18 13:27 Dose: 25 mg Sodium Chloride (Ns) 1,000 mls @ 0 mls/hr IV ONCE ONE; Wide Open PRN Reason: Protocol Stop: 04/22/18 10:15 Last Admin: 04/22/18 10:41 Dose: 1,000 mls Metoclopramide HCl (Reglan Injection) 10 mg IVP EDNOW ONE Stop: 04/22/18 13:22 Last Admin: 04/22/18 13:26 Dose: 10 mg Departure - Departure Disposition: Home, Routine, Self-Care Clinical Impression: Vertigo Condition: Good Instructions: Vertigo (ED) Additional Instructions: Read and follow provided instructions. Follow-up with your neurologist, as discussed tomorrow for re-evaluation. Explain to your neurologist that you did have MRIs of your brain and neck here in the emergency department. These results can easily be obtained by her neurologist. Continue taking medications as prescribed. Return to the emergency department for worsening symptoms or other serious concerns. Referrals: Kathy Mederos MD [Primary Care Provider] - As per Instructions
[2018-04-22 10:54] LABS: PLATELET COUNT 251 10^3/uL (150-400)
[2018-04-22] MEDS ORDERED: DIAZEPAM 5 MG/ML 1 ML SYR IVP ONE (11:01)
[2018-04-22] MEDS ORDERED: GADOBUTROL 10 ML VIAL IVP ONE (11:48)
[2018-04-22] MEDS ORDERED: METOCLOPRAMIDE 10 MG/2 ML VIAL IVP ONE (13:21)
[2018-04-22] MEDS ORDERED: DEXAMETHASONE 10 MG/ML VIAL IVP ONE (13:21)
[2018-04-22 14:40] VITALS: BP 98/58
--- NOTE | 2018-04-22 15:05 | CPEKG ---
Test Reason : OPEN Blood Pressure : / mmHG Vent. Rate : 052 BPM Atrial Rate : 053 BPM P-R Int : 117 ms QRS Dur : 095 ms QT Int : 452 ms P-R-T Axes : 040 074 049 degrees QTc Int : 421 ms Sinus rhythm Confirmed by Mando Steward ([id number]) on 04/22/2018 3:04:55 PM Referred By: Confirmed By:Mando Steward
== END 2018-04-22 14:42 | disposition home or self-care (01) ==
DX: R42 Dizziness and giddiness (principal); E86.9 Volume depletion, unspecified; R51 Headache
CPT/HCPCS: 96374; A9585; J1100; J1200; J2765; J3360

== ENCOUNTER 2018-09-09 12:18 | Emergency (ER) | payer OTHER ==
--- NOTE | 2018-09-09 13:30 | EDPHY ---
H & P Stated Complaint: NG tube is clogged Time Seen by Provider: 09/09/18 13:00 HPI/ROS: CHIEF COMPLAINT: NG tube clogged HISTORY OF PRESENT ILLNESS: The patient presents to the ED with a clogged NG tube. It was just recently replaced over the weekend at a outside hospital in or again. The patient is followed by Gastroenterology at the [facility]. She was referred to our ED for evaluation. She reports she has a Century tube in place. She has it for constant feeding secondary to severe gastroparesis. REVIEW OF SYSTEMS: A comprehensive 10 point review of systems is otherwise negative aside from elements mentioned in the history of present illness. Source: Patient Exam Limitations: No limitations - Personal History LMP (Females 10-55): Extended Cycle BCP/Inj Current Tetanus Diphtheria and Acellular Pertussis (TDAP): Yes Tetanus Vaccine Date: 2011 - Medical/Surgical History Hx Asthma: Yes Hx Chronic Respiratory Disease: No Hx Diabetes: No Hx Cardiac Disease: No Hx Renal Disease: No Hx Cirrhosis: No Hx Alcoholism: No Hx HIV/AIDS: No Hx Splenectomy or Spleen Trauma: No Other PMH: ANOREXIA, ANXIETY, ADD, REACTIVE AIRWAY DX, DEPRESSION, KNEE SX, "immune system issues". ellsandrars beulahs/pots - Social History Smoking Status: Never smoked - Physical Exam Exam: General Appearance: Alert, no distress Eyes: Pupils equal and round no pallor or injection ENT, Mouth: Mucous membranes moist Respiratory: There are no retractions, lungs are clear to auscultation Cardiovascular: Regular rate and rhythm Gastrointestinal: Abdomen is soft and nontender, no masses, bowel sounds normal Neurological: A&O, normal motor function, normal sensory exam, normal cranial nerves Skin: Warm and dry, no rashes Musculoskeletal: Neck is supple nontender Extremities: symmetrical, full range of motion Psychiatric: Patient is oriented X 3, there is no agitation Constitutional: Initial Vital Signs Temperature (C) 37.1 C 09/09/18 12:26 Heart Rate 87 09/09/18 12:26 Respiratory Rate 18 09/09/18 12:26 Blood Pressure 114/83 H 09/09/18 12:26 O2 Sat (%) 97 09/09/18 12:26 O2 Delivery Mode Room Air Allergies/Adverse Reactions: No Known Allergies Allergy (Verified 09/09/18 12:24) Home Medications: Medication Instructions Recorded Concerta 03/29/17 Zofran 03/29/17 Pantoprazole Sodium 05/21/17 busPIRone 05/21/17 GABAPENTIN 400 mg PO 08/18/17 Levomefolate/Algal Oil 08/18/17 [Deplin-Algal Oil 15 mg Capsule] Phenergan 04/22/18 Propranolol HCl 04/22/18 traMADol 04/22/18 Cyclobenzaprine 09/09/18 Junel 1 mg-20 Mcg Tablet 09/09/18 Midodrine HCl 09/09/18 Medical Decision Making ED Course/Re-evaluation: I spoke with Dr. Reddy from interventional radiology. While we do not stock Century tubes here interventional Radiology will attempt to clear the patient's to with guidewire. Patient has returned from interventional Radiology at 2:30 with clearance of her NG tube. She will be discharged home and follow up with her regular fur clipper as scheduled. Departure - Departure Disposition: Home, Routine, Self-Care Clinical Impression: Feeding tube blocked Condition: Good Instructions: Nasogastric Tube (DC) Additional Instructions: 1. Return to the ED for any recurrent problems with your NG tube. 2. Follow up with your regular physician as scheduled. Referrals: Kathy Mederos MD [Primary Care Provider] - As per Instructions
[2018-09-09] MEDS ORDERED: IOPAMIDOL (ISOVUE 370) 100 ML BTL IV ONE (13:55)
[2018-09-09 14:25] VITALS: BP 129/80
== END 2018-09-09 14:38 | disposition home or self-care (01) ==
DX: K94.23 Gastrostomy malfunction (principal)
CPT/HCPCS: 76000; 99283; C1769; Q9967

== ENCOUNTER 2018-11-27 08:07 | Emergency (ER) | payer OTHER ==
--- NOTE | 2018-11-27 08:16 | EDPHY ---
H & P Stated Complaint: needs nj tube replaced Time Seen by Provider: 11/27/18 08:16 - Personal History LMP (Females 10-55): Extended Cycle BCP/Inj Current Tetanus Diphtheria and Acellular Pertussis (TDAP): Yes Tetanus Vaccine Date: 2011 - Medical/Surgical History Hx Asthma: No Hx Chronic Respiratory Disease: No Hx Diabetes: No Hx Cardiac Disease: No Hx Renal Disease: No Hx Cirrhosis: No Hx Alcoholism: No Hx HIV/AIDS: No Hx Splenectomy or Spleen Trauma: No Other PMH: ANOREXIA, ANXIETY, ADD, REACTIVE AIRWAY DX, DEPRESSION, KNEE SX, "immune system issues". breanne gann/lotus - Social History Smoking Status: Never smoked Constitutional: Initial Vital Signs Temperature (C) 36.6 C 11/27/18 08:11 Heart Rate 75 11/27/18 08:11 Respiratory Rate 17 11/27/18 08:11 Blood Pressure 139/81 H 11/27/18 08:11 O2 Sat (%) 98 11/27/18 08:11 O2 Delivery Mode Room Air Allergies/Adverse Reactions: No Known Allergies Allergy (Verified 11/27/18 08:10) Home Medications: Medication Instructions Recorded Concerta 03/29/17 Zofran 03/29/17 Pantoprazole Sodium 05/21/17 busPIRone 05/21/17 GABAPENTIN 400 mg PO 08/18/17 Phenergan 04/22/18 Propranolol HCl 04/22/18 Cyclobenzaprine 09/09/18 Junel 1 mg-20 Mcg Tablet 09/09/18 Midodrine HCl 09/09/18 Concerta 11/27/18 busPIRone 11/27/18 Medical Decision Making - Diagnostics Imaging: Discussed imaging studies w/ call center analyst Radiologist, I viewed and interpreted images myself ED Course/Re-evaluation: CHIEF COMPLAINT: NJ tube dysfunction HISTORY OF PRESENT ILLNESS: The patient is a 22 y/o female with a history of severe gastroparesis requiring an NJ tube complaining of an NJ tube dysfunction this morning. The patient states that she woke up this morning and noticed that the NJ tube was leaking at the end where she connects the feed to the NJ tube. She is able to flush the tube without difficulty and she does not believe it is clogged. No fever, headache, body aches, lightheadedness, chest pain, heart palpitations, shortness of breath, cough, abdominal pain, urinary or bowel complaints, numbness, paresthesias. REVIEW OF SYSTEMS: A 10 point review of systems was performed and is negative with the exception of the elements mentioned in the history of present illness. PHYSICAL EXAM: HR, BP, O2 Sat, RR. Temp noted General Appearance: Alert, well hydrated, appropriate, and non-toxic appearing. Head: Atraumatic without scalp tenderness or obvious injury Eyes: Pupils equal, round, reactive to light and accommodation, EOMI, no trauma , no injection. Ears: Clear bilaterally, no perforation, normal landmarks Nose: Atraumatic, no rhinorrhea, clear. Throat: There is no erythema or exudates, no lesions, normal tonsils, mucus membranes moist. Neck: Supple, 2+ carotid upstroke, nontender, no lymphadenopathy. Respiratory: No retractions, no distress, no wheezes, and no accessory muscle use. Lungs are clear to auscultation bilaterally. Cardiovascular: Regular rate and rhythm, no murmurs, rubs, or gallops. Bilateral carotid, radial, dorsalis pedis, and posterior tibial pulses intact. Good capillary refill all extremities. Gastrointestinal: NJ tube in place. Abdomen is soft, nontender, non-distended, no masses, no rebound, no guarding, no peritoneal signs. Musculoskeletal: Normal active ROM of all extremities, atraumatic. Neurological: Alert, appropriate, and interactive. The patient has normal DTRs and non-focal cranial nerves, motor, sensory, and cerebellar exam. Skin: No rashes, good turgor, no nodules on palpation. Past medical history: Gastroparesis (NJ tube in place, POTS, anorexia, anxiety, ADD, depression Past surgical history: Knee surgery Family history: Denies Social history: Single, lives in [place], student DIAGNOSTICS/PROCEDURES/CRITICAL CARE TIME: NJ Tube Fluoroscopy: DIFFERENTIAL DIAGNOSIS: The differential diagnosis includes but is not limited to NJ tube leaking, NJ tube dysfunction, NJ tube clog. MEDICAL DECISION MAKING: The patient is a 22 y/o female with a history of severe gastroparesis requiring an NJ tube presenting with an NJ tube dysfunction this morning as it was leaking. She is able to flush the tube without difficulty and she does not believe it is clogged. The NJ tube appears to be leaking from the distal end, not the proximal end. We will page IR (nursing) to see if they can replace the connector as the tube itself does not need to be replaced. 0839: I spoke with the patient's nurse who believes that the tube was connected properly. She is currently having a feed and then we will assess if the tube is in fact leaking. 0856: I spoke with the patient's nurse who reports that the tube might not be flowing with feed and only with saline. We will see if there is residual. 0907: Patient's nurse reports that the NJ tube is effectively taking in the fluid and feed, but there is a questionable clog. We will page interventional radiology to see if a guide wire can improve the flow rate. 1014: I consulted with Dr. Rebollar, radiologist, regarding patient's fluoroscopy guide wire of the NJ tube. He believes the flow has improved. 1035: Reassessed patient and discussed fluoroscopy findings. I have advised her to follow up with a her meter and regulator shop supervisor. Return precautions provided; patient is comfortable with this plan. Departure - Departure Disposition: Home, Routine, Self-Care Clinical Impression: NJ tube dysfunction Feeding tube dysfunction Qualifiers: Encounter type: initial encounter Qualified Code(s): T85.598A - Other mechanical complication of other gastrointestinal prosthetic devices, implants and grafts, initial encounter Condition: Good Instructions: Tube Feeding (DC) Additional Instructions: 1. Follow up with your meter and regulator shop supervisor. 2. Return to the Emergency Department for fever, chest pain, shortness of breath , increasing pain or other worsening of condition. Referrals: JAVON,ARMANDO [Other] - As per Instructions Report Scribed for: Pardeep Patterson Report Scribed by: aCrly Mott Date of Report: 11/27/18 Time of Report: 08:18
[2018-11-27 11:03] VITALS: BP 114/81
== END 2018-11-27 11:05 | disposition home or self-care (01) ==
DX: K31.84 Gastroparesis (principal); K94.23 Gastrostomy malfunction; F32.9 Major depressive disorder, single episode, unspecified